=== PATIENT | female | born 1935 | race Caucasian/White ===

== ENCOUNTER → 2016-02-12 | Outpatient (CLI) | payer MEDICARE, BC | LOC: PCVCCLINIC 14:00 | PROVIDERS: ATTEND Internal Medicine Cardiovascular Disease | DX: I77.9 Disorder of arteries and arterioles, unspecified (principal); R07.9 Chest pain, unspecified; I87.329 Chronic venous hypertension (idiopathic) with inflammation of unspecified lower extremity; I87.2 Venous insufficiency (chronic) (peripheral); I10 Essential (primary) hypertension; I25.10 Atherosclerotic heart disease of native coronary artery without angina pectoris; I73.9 Peripheral vascular disease, unspecified; E78.00 Pure hypercholesterolemia, unspecified | CPT/HCPCS: 93005; G0463 ==

== ENCOUNTER → 2016-03-23 | Outpatient (CLI) | payer MEDICARE, BC | END | disposition home or self-care (01) | LOC: PCVCIMAG 14:14 | PROVIDERS: ATTEND Nuclear Medicine Nuclear Cardiology | DX: I70.263 Atherosclerosis of native arteries of extremities with gangrene, bilateral legs (principal); I25.10 Atherosclerotic heart disease of native coronary artery without angina pectoris | CPT/HCPCS: 93925 ==

== ENCOUNTER → 2016-06-21 | Outpatient (CLI) | payer MEDICARE, BC | LOC: PCVCIMAG 13:34 | PROVIDERS: ATTEND Nuclear Medicine Nuclear Cardiology | DX: I70.213 Atherosclerosis of native arteries of extremities with intermittent claudication, bilateral legs (principal) | CPT/HCPCS: 93925 ==

== ENCOUNTER → 2017-01-04 | Outpatient (CLI) | payer MEDICARE, BC | END | disposition home or self-care (01) | LOC: PCVCCLINIC 13:34 | PROVIDERS: ATTEND Internal Medicine Cardiovascular Disease | DX: I25.10 Atherosclerotic heart disease of native coronary artery without angina pectoris (principal); I10 Essential (primary) hypertension; I87.2 Venous insufficiency (chronic) (peripheral); J44.9 Chronic obstructive pulmonary disease, unspecified; I73.9 Peripheral vascular disease, unspecified; Z87.891 Personal history of nicotine dependence; Z79.899 Other long term (current) drug therapy | CPT/HCPCS: 80061; 93005; G0463 ==

== ENCOUNTER → 2017-02-10 | Outpatient (CLI) | payer MEDICARE, BC ==
[~2017-02-10] MED LIST: AMINOPHYLLINE 250 MG/10 ML VIAL.; REGADENOSON 0.4 MG/5 ML DISP.SYRIN. IV
== END | disposition home or self-care (01) ==
LOC: PCVCIMAG 09:09
DX: I25.10 Atherosclerotic heart disease of native coronary artery without angina pectoris (principal); I10 Essential (primary) hypertension; J44.9 Chronic obstructive pulmonary disease, unspecified; I73.9 Peripheral vascular disease, unspecified
CPT/HCPCS: 78452; 93017; A9500; J0280; J2785

== ENCOUNTER → 2017-04-11 | Outpatient (CLI) | payer MEDICARE, BC | END | disposition home or self-care (01) | LOC: PCVCIMAG 08:14 | DX: I73.9 Peripheral vascular disease, unspecified (principal) | CPT/HCPCS: 93925 ==

== ENCOUNTER → 2017-08-24 | Outpatient (CLI) | payer MEDICARE, BC | END | disposition home or self-care (01) | LOC: PCVCCLINIC 14:03 | DX: I25.10 Atherosclerotic heart disease of native coronary artery without angina pectoris (principal); I73.9 Peripheral vascular disease, unspecified; E78.00 Pure hypercholesterolemia, unspecified; I10 Essential (primary) hypertension; I77.9 Disorder of arteries and arterioles, unspecified; Z87.891 Personal history of nicotine dependence | CPT/HCPCS: 80061; 93005; G0463 ==

== ENCOUNTER → 2018-03-06 | Outpatient (CLI) | payer MEDICARE, BC ==
--- NOTE | 2018-03-06 13:16 | PCVCIMAG ---
EXAM: BILATERAL LOWER EXTREMITY ARTERIAL DUPLEX INDICATION: Peripheral Arterial Disease. Leg pain. FINDINGS: Right Leg: Common femoral artery is patent. Mild stenosis origin profunda femoral artery. Systolic velocity 384 cm/s proximal [place] superficial femoral artery consistent with 70-80% stenosis is increased in severity since 2018 study. Stent upper superficial femoral artery maintaining satisfactory patency. Popliteal artery is patent. Distal peroneal artery is occluded. The anterior and posterior tibial arteries are patent. Left Leg: Common femoral and profunda femoral arteries are patent. Superficial femoral artery and popliteal artery are patent. Previous stents mid/distal superficial femoral artery are patent. The anterior tibial and peroneal arteries are patent. 60% stenosis proximal posterior tibial artery. IMPRESSION: 70-80% stenosis proximal [place] right superficial femoral artery has increased in severity since 2018 study. Please correlate clinically. Previous upper right superficial femoral artery stent maintaining adequate patency. 60% stenosis proximal left posterior tibial artery. Otherwise no flow limiting stenosis in the left lower extremity. Previous left superficial femoral artery stent maintaining adequate patency. LOC:[id number]
== END | disposition home or self-care (01) ==
LOC: PCVCIMAG 09:54
PROVIDERS: ATTEND Internal Medicine Cardiovascular Disease
DX: I25.10 Atherosclerotic heart disease of native coronary artery without angina pectoris (principal); I10 Essential (primary) hypertension; E78.00 Pure hypercholesterolemia, unspecified; I73.9 Peripheral vascular disease, unspecified; M48.00 Spinal stenosis, site unspecified; Z87.891 Personal history of nicotine dependence
CPT/HCPCS: 36415; 80061; 93005; 93925; G0463

== ENCOUNTER → 2018-03-13 | Outpatient (CLI) | payer MEDICARE, BC ==
[~2018-03-13] MED LIST changes: -AMINOPHYLLINE 250 MG/10 ML VIAL.; +DIAZEPAM 10 MG TABLET. ONE; +EPTIFIBATIDE BOLUS 2,000 MCG/ML 10ML VIAL. IV ONE; +HEPARIN for ARTERIAL LINE 1,500 ML ONE; +HEPARIN for SUB-Q USE 5,000 UNIT/ML VIAL. SQ ONE; +IODIXANOL 270 MG/ML 100 ML VIAL. ONE; +IOHEXOL 300 MG/ML 50 ML VIAL. ONE; +IOHEXOL 350 MG/ML 100 ML VIAL. ONE; +IV NORMAL SALINE 1000ML BAG 1,000 ML ONE; +LIDOCAINE 1%/EPI 1:100,000 20 ML VIAL. ONE; +METOPROLOL TARTRATE 5 MG/5 ML VIAL. IVP ONE; +MIDAZOLAM HCL/PF 2 MG/2 ML VIAL. ONE; +NITROGLYCERIN SUBLINGUAL 0.4 MG BOTTLE OF 25. SL ONE; -REGADENOSON 0.4 MG/5 ML DISP.SYRIN. IV; +fentaNYL PF VIAL 100 MCG/2 ML VIAL ONE; +hydrALAZINE 20 MG/ML VIAL. ONE
--- NOTE | 2018-03-13 18:30 | PCVCINTER ---
EXAM: 1. AORTOGRAM AND BILATERAL LOWER EXTREMITY RUNOFF ANGIOGRAM 2. BILATERAL RENAL ANGIOGRAPHY INDICATION: Peripheral arterial disease. Coronary artery disease. Leg pain. Hypertension. Renal atherosclerosis. No prior catheter based angiographic study is available. A full diagnostic angiogram study is performed today and the decision to intervene is based on this diagnostic study. PROCEDURE: Procedure and risks of angiography intervention is appropriate including limb loss stroke and were discussed with the patient's family and consent obtained. The patient's left groin was prepped in the normal sterile fashion. IV conscious sedation was used throughout procedure with appropriate monitoring from 12:00 PM through 1:00 PM. Ultrasound was used to interrogate the left groin and showed the left common femoral artery to be patent. A permanent spot film was obtained. Under ultrasound guidance access into the left common femoral artery was obtained and a 5 [place] sheath was placed. Through this a 5 [place] flush catheter was placed into the abdominal aorta at the level of the renal arteries and AP aortogram was performed. Catheter was positioned at the aortic bifurcation and both oblique views of the pelvis were obtained. Catheter was positioned into the left external iliac artery and left leg runoff angiography was performed. Catheter was exchanged for a visceral catheter was placed into the right renal arteries and right renal angiograms obtained. Catheter was placed into the the left renal arteries and left renal angiograms were obtained. Catheter was advanced to the level of the right external iliac artery and right leg runoff angiography was obtained. Dr. Anthony joined the procedure and he performed coronary angiography. Please see his separate dictation for full details. Catheters and wires removed. Sheath was removed and hemostasis obtained using the FISH device. No immediate complications. FINDINGS: Aortogram: There is one right and one left renal artery. Ulcerated plaque infrarenal abdominal aorta not felt be flow-limiting. Pelvis: Right common and external iliac artery are patent. Previous stent left common iliac artery showing good patency. Left external iliac artery is patent. Both internal iliac arteries are patent. Extensive irregular plaque distal right common femoral artery and origin right superficial femoral artery results in 95% stenosis. Moderate stenosis origin profunda femoral artery as well. Previous endarterectomy changes left common femoral artery is patent. Left profunda femoral artery is patent. Right renal artery: Moderate plaque proximal vessel does not cause significant stenosis. Left renal artery: Mild plaque proximal vessel does not cause significant stenosis. Right leg: Severe stenosis origin superficial femoral artery. Otherwise no flow limiting stenosis throughout the superficial femoral artery. Previous stent proximal/mid superficial femoral artery is patent. 40% stenosis distal superficial femoral artery. Popliteal artery is patent. Posterior tibial artery is occluded throughout its length. Moderate stenosis proximal and distal peroneal artery. Anterior tibial artery is the dominant runoff vessel showing good patency into the dorsalis pedis. Left leg: Superficial femoral artery maintaining adequate patency including prior stent distal vessel. Popliteal artery is patent. 90% stenosis proximal posterior tibial artery. Anterior tibial and peroneal arteries are patent. IMPRESSION: 95% stenosis distal right common femoral artery and origin right superficial femoral artery due to extensive calcific plaque. Patient will best be served by surgical endarterectomy patient has been referred to Dr. Womack. Previous bilateral superficial femoral artery stent maintaining adequate patency. LOC:[id number]
--- NOTE | 2018-03-15 11:35 | PCVCINTER ---
APPROVED REPORT Study performed: 03/13/2018 13:11:20 Patient Details Patient Status: Out-Patient Room #: 3 The patient is a 83 year-old Female Event Personnel Gabrielle Santizo MD, Dayne Tony RT(R)(), Will Pritchett RT(R), Davey Latif RN Risk Factors Arterial HypertensionDysplipidemia (Type: 1), Cerebrovascular DiseasePeripheral Vascular Disease, Chronic Lung DiseaseHypercholesterolemia, Last Creatanine 0.8Tobacco History (Former) Previous Procedures/Diagnoses Previous PCI, Previous Femoral Procedure, Previous [place], CAD, Hypertension, PVD Procedure Narrative The right coronary system was accessed and visualized with a JR4 catheter. The left coronary system was accessed and visualized with a JL4 catheter. The left ventricle was accessed and visualized with a Straight Pigtail catheter. Left ventriculogram was performed in [place] projection. Closure device was deployed with a 6 Fr FISH. Hemostasis was obtained with manual pressure following sheath removal without any complications. The patient tolerated the procedure well and there were no complications associated with the procedure. There was no hematoma. Hemodynamics The aortic pressure is 109/47 mmHg with a mean of 75 mmHg. The left ventricular pressure is 92/1 mmHg with a mean of 1 mmHg. Conclusion #1 normal left ventricular size and systolic function EF 60-65% #2 mild ostial left main disease no occlusive disease giving rise to LAD and circumflex #3 LAD is proximal calcification. There is a mid vessel at the bifurcation of the diagonal takeoff has a 50-60% LAD lesion preserved distal vessel. #4 circumflex OM nondominant moderate in size mild irregularities high rising first OM with a 40% lesion mild disease and a larger more distal OM branch #5 there is a dominant right coronary artery heavily proximal calcification with an eccentric lesion of 60-70% mid vessel 50-60% proximal to a previously placed stent with mild in-stent restenosis. This gives rise to a large PDA ROSELINE system which is well preserved Regulations and plan: Continue aggressive risk factor modification. We will monitor this right coronary artery for significant ischemia. Also the mid LAD these lesions appear stable and we'll continue to treat medically.
== END | disposition home or self-care (01) ==
LOC: PCVCIMAG 12:11
PROVIDERS: ATTEND Internal Medicine Cardiovascular Disease
DX: I70.211 Atherosclerosis of native arteries of extremities with intermittent claudication, right leg (principal); I25.10 Atherosclerotic heart disease of native coronary artery without angina pectoris; I10 Essential (primary) hypertension; I70.1 Atherosclerosis of renal artery; E78.00 Pure hypercholesterolemia, unspecified; M48.00 Spinal stenosis, site unspecified; I65.23 Occlusion and stenosis of bilateral carotid arteries; J44.9 Chronic obstructive pulmonary disease, unspecified; I77.9 Disorder of arteries and arterioles, unspecified; I87.2 Venous insufficiency (chronic) (peripheral); I25.2 Old myocardial infarction; E78.5 Hyperlipidemia, unspecified; I87.329 Chronic venous hypertension (idiopathic) with inflammation of unspecified lower extremity; Z98.890 Other specified postprocedural states; Z90.710 Acquired absence of both cervix and uterus; Z95.828 Presence of other vascular implants and grafts; Z88.8 Allergy status to other drugs, medicaments and biological substances; Z88.1 Allergy status to other antibiotic agents; Z87.891 Personal history of nicotine dependence
CPT/HCPCS: 36246; 36252; 75716; 76937; 93458; C1751; C1760; C1769; C1894; J0360; J1644; J2250; J3010; J3490; J7030; Q9967; 99152; 99153; J0690; J1327

== ENCOUNTER → 2019-01-31 | Outpatient (CLI) | payer MEDICARE, BC ==
--- NOTE | 2019-01-31 15:26 | PCVCIMAG ---
EXAM: BILATERAL LOWER EXTREMITY ARTERIAL DUPLEX INDICATION: Peripheral Arterial Disease. Leg pain. FINDINGS: Right Leg: Common femoral and profunda femoral arteries are patent. Superficial femoral artery and popliteal artery are patent. The distal peroneal artery is occluded. The anterior tibial artery is patent. Occlusion mid/distal posterior tibial artery. Previous stent proximal/mid superficial femoral artery is patent. Left Leg: Common femoral and profunda femoral arteries are patent. Superficial femoral artery and popliteal artery are patent. Previous stent distal superficial femoral artery is patent. 60% stenosis proximal posterior tibial artery. The anterior tibial and peroneal arteries are patent. 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 Otherwise no flow limiting stenosis in the right lower extremity. Previous proximal/mid right superficial femoral artery stent maintaining satisfactory patency. No flow limiting stenosis in the left lower extremity. Previous stent distal left superficial femoral artery maintaining satisfactory patency. LOC:[id number]
== END | disposition home or self-care (01) ==
LOC: PCVCIMAG 12:58
PROVIDERS: ATTEND Internal Medicine Cardiovascular Disease
DX: I70.201 Unspecified atherosclerosis of native arteries of extremities, right leg (principal); E78.00 Pure hypercholesterolemia, unspecified; Z87.891 Personal history of nicotine dependence; Z88.8 Allergy status to other drugs, medicaments and biological substances
CPT/HCPCS: 93925